=== PATIENT | female | born 1975 | race Caucasian/White ===

== ENCOUNTER 2017-07-27 10:08 | Day surgery (SDC) | payer BC ==
--- NOTE | 2017-07-27 08:08 | HP ---
DATE OF SURGERY: 07/27/2017 HISTORY OF PRESENT ILLNESS: The patient is a 41 year-old with pain in the mid abdomen, hard knot for years and now increased aches and pains for the past two weeks. She had prior appendectomy and laparoscopic endometriosis surgery in the past. She had some hernia surgery in the past. PAST MEDICAL HISTORY: She denies any chronic illnesses. PAST SURGICAL HISTORY: Laparoscopic endometriosis surgery in the past. Hernia surgery in the past. She had hand surgery and knee surgery and appendectomy in the past. MEDICATIONS: control pills, Prilosec, multivitamins according to the patient. ALLERGIES: NKDA. FAMILY HISTORY: Cancer, hypertension, dementia. SOCIAL HISTORY: No smoking or alcohol abuse. REVIEW OF SYSTEMS: Twelve systems reviewed per admission assessment. No chest pain or palpitations other systems negative or noncontributory as above and per preadmission questionnaire. PHYSICAL EXAMINATION: GENERAL: No acute distress. HEENT: Sclerae nonicteric. NECK: No JVD. CHEST: Equal excursion, nonlabored breathing. CVS: Regular rate and rhythm. ABDOMEN: Soft. She has a bulge in the mid upper abdomen likely some incarcerated preperitoneal fat or omentum. Otherwise no peritoneal signs. EXTREMITIES: No edema. NEURO: Alert, oriented, moving extremities symmetrically. No gross motor deficits noted. IMPRESSION: Incarcerated ventral hernia likely with some incarcerated preperitoneal fat or omentum at the old port from prior surgery, incarcerated hernia benefit from repair. Risks and benefits explained in detail including but not limited to bleeding or infection, risk of hematoma or seroma formation, risk of ingrown hair, suture reaction, risk if the mesh became infected likely would need to be removed, general risk of anesthesia, deep venous thrombosis, pulmonary embolism, pneumonia, risk of aches, pains, burning or numbness possible long-term or chronic in nature. She understands the overall risk of hernia recurrence. She understands small risk of scar formation, adhesions or bowel obstruction or ileus afterwards as well as remote risk of mesh fracture or failure possibly creating issues at the viscera or other structures possibly requiring other procedure, ongoing morbidity. She understands all the above as well as general risk of aches, pains, possibly chronic in nature. She understands all the above but not limited to, will proceed with repair of incarcerated ventral hernia with mesh as an outpatient.
[~2017-07-27 10:08] MED LIST: Lactated Ringers 1,000 ML IV ONE; Sensorcaine 0.25% 10 ML ONE
[2017-07-27] MEDS ORDERED: SUBLIMAZE 250 MCG/5 ML IJ ONE (10:09)
[2017-07-27] MEDS ORDERED: DIPRIVAN 200 MG/20 ML IV ONE (10:09)
[2017-07-27] MEDS ORDERED: TORAdol 30 mg Injection IJ ONE (10:09)
[2017-07-27] MEDS ORDERED: Zofran 4 MG/2 ML VIAL IV ONE (10:09)
[2017-07-27] MEDS ORDERED: Versed 2 MG/2 ML Injection IV ONE (10:09)
[2017-07-27] MEDS ORDERED: BRIDION 200MG/2ML IV ONE (10:09)
[2017-07-27] MEDS ORDERED: Zemuron 100 MG/10 ML IJ ONE (10:09)
[2017-07-27] MEDS ORDERED: Lactated Ringers 1,000 ML IV ONE (11:12)
[2017-07-27] MEDS ORDERED: CEFAZOLIN 2 GM-D5W BAG** 2 GM/50 ML ML IV ONE (11:13)
[2017-07-27] MEDS ORDERED: Lactated Ringers 1,000 ML IV SCH (11:30)
[2017-07-27] MEDS ORDERED: CEFAZOLIN 2 GM-D5W BAG** 2 GM/50 ML ML IV SCH (11:30)
[2017-07-27] MEDS ORDERED: SUBLIMAZE 100 MCG/2 ML ONE (13:56)
[2017-07-27 16:38] VITALS: O2SAT 95
[2017-07-27 16:46] VITALS: BP 136/90; PULSE 65
--- NOTE | 2017-07-28 09:52 | OP ---
SURGERY DATE/TIME: 07/27/2017 1245 PREOPERATIVE DIAGNOSIS: Enlarging symptomatic epigastric ventral hernia with smaller port incisional hernia cephalad to larger epigastric ventral hernia. POSTOPERATIVE DIAGNOSIS: Enlarging symptomatic epigastric ventral hernia with smaller port incisional hernia cephalad to larger epigastric ventral hernia. PROCEDURE: Repair of incarcerated ventral hernia with mesh. SURGEON: Dr. Alex Dean. ANESTHESIA: General. ESTIMATED BLOOD LOSS: Minimal. INDICATIONS: As noted above. Risks and benefits explained in detail and not limited to and consent was obtained. DESCRIPTION OF PROCEDURE AND FINDINGS: The site is confirmed with the patient in the preoperative holding area. The patient is taken to the operating room. General anesthesia induced. Abdomen prepped and draped in usual sterile fashion. After official time out and no disagreement with planned procedure, a transverse incision overlying large portion of the hernia. Dissection carried down. The hernia appeared to be much larger than expected. In the lower epigastrium there was a separate port incision more inferior. Incisional hernia with incarcerated preperitoneal fat and omentum this took quite some time but connecting the two complex hernias freeing them from the surrounding tissue dissecting down along the fascia. After reducing the fascial bridge they were finally reduced back down in the abdomen. The posterior aspect of fascia cleared circumferentially around. Given the moderate sized defect felt that 6.[address] was the most appropriate size mesh to use. It was carefully wet and inserted. Strap pulled upward insuring it was flat circumferentially around. It was secured a centimeter apart around the edges with interrupted 0 Prolene with healthy bites of fascia in tension-free manner. This took some time but slowly and carefully accomplished. Once this was accomplished the attenuated tissue was then closed over the top of the mesh with interrupted #1 PDS. 0.25% Marcaine local injected along the fascia and skin area. Copious amount of irrigation irrigating until clear. The tissue was cut back down to the fascia making sure inferior area at the umbilical area was kept inverted in a tension-free manner. Good hemostasis noted. Deep superficial subcu closed with 3-0 Vicryl, skin closed with 4-0 Vicryl. Steri-Strips and sterile dressing applied. 0.25% Marcaine local had been injected along the skin incision and fascial defect. The patient tolerated the procedure well. There were no immediate complications. Steri-Strips and sterile dressing and abdominal binder placed. The patient transferred to the recovery room in stable condition. Findings discussed with the family out in the waiting area.
== END 2017-07-27 16:20 | disposition home or self-care (01) ==
LOC: SDC 10:08
PROVIDERS: ATTEND Surgery
PROC: 0WUF0JZ Supplement Abdominal Wall with Synthetic Substitute, Open Approach (ICD-10-PCS; principal; 2017-07-27)
DX: K43.0 Incisional hernia with obstruction, without gangrene (principal)
CPT/HCPCS: 00752; 84703; J0690; J1885; J2250; J2405; J2704; J3010; L0625

== ENCOUNTER 2023-05-08 05:03 | Day surgery (SDC) | payer BC ==
[2023-05-08] MEDS ORDERED: EXPAREL 133 MG/10 ML VIAL IJ ONE (05:04)
[2023-05-08] MEDS ORDERED: Lactated Ringers 1,000 ML IV SCH (05:30)
[2023-05-08] MEDS ORDERED: CEFAZOLIN 2 GM-D5W BAG** 2 GM/50 ML ML IV SCH (05:30)
[2023-05-08 05:31] LABS: HCG URINE TEST NEGATIVE (NEGATIVE)
[2023-05-08 05:40] VITALS: RESP 16
[2023-05-08] MEDS ORDERED: Epinephrine Preservative Free 1 MG/ML ONE ×2 (05:44→06:10)
[2023-05-08] MEDS ORDERED: VANCOCIN INJECTION IV ONE (05:44)
[2023-05-08 05:54] LABS: BASOPHIL % 0.7 % (0.0-0.4); Basophil (Absolute #) 0.04 x10^3/uL (0-0.4); Eosinophil % 2.6 % (0.00-5.0); Eosinophil (Absolute #) 0.14 x10^3/uL (0-0.5); Hematocrit 40.6 % (35-47); Hemoglobin 13.4 g/dL (12.0-16.0); IMMATURE GRAN # 0.01 x10^3u/L (0.00-0.03); IMMATURE GRAN % 0.2 % (0.00-0.4); Lymphocyte (Absolute #) 1.42 x10^3/uL (1.0-4.6); Lymphocytes % 26.2 % (24.0-44.0); Mean Cell Volume 84.1 fL (78-100); Mean Corpuscular Hemoglobin 27.7 pg (26-32); Mean Platelet Volume 9.1 fL (7.5-11.0); Monocyte (Absolute #) 0.51 x10^3/uL (0.0-1.3); Monocytes % 9.4 % (0.0-12.0); Neutrophil % 60.9 % (36.0-66.0); Platelet Count 221 x10^3/uL (150-450); Red Blood Count 4.83 x10^6/uL (4.1-5.4); Red Cell Distribution Width 13.1 % (11.5-14.0); White Blood Count 5.4 x10^3/uL (4.0-10.5)
[2023-05-08 06:07] LABS: ALBUMIN 3.9 g/dL (3.5-5.0); ANION GAP 13.8 MEQ/L (5-15); BILIRUBIN,TOTAL 0.8 mg/dL (0.2-1.3); Calcium 8.7 mg/dL (8.4-10.2); Creatinine 1 0.79 mg/dL (0.52-1.04); EST GLOMERULAR FILTRATION RATE 92.2 ML/MIN; Potassium 3.2 mmol/L (3.5-5.1); Total Protein 6.9 g/dL (6.3-8.2)
[2023-05-08] MEDS ORDERED: DIPRIVAN 200 MG/20 ML IV ONE (06:08)
[2023-05-08] MEDS ORDERED: Decadron 4 MG INJ ONE (06:09)
[2023-05-08] MEDS ORDERED: DEXMEDETOMIDINE 80 MCG/20ML-NS IV ONE (06:09)
[2023-05-08] MEDS ORDERED: Zemuron 100 MG/10 ML ONE (06:09)
[2023-05-08] MEDS ORDERED: Xylocaine-Mpf 2% 5 Ml Vial ONE (06:09)
[2023-05-08] MEDS ORDERED: SUBLIMAZE 100 MCG/2 ML ONE ×3 (06:09→09:07)
[2023-05-08] MEDS ORDERED: Zofran 4 MG/2 ML VIAL ONE (06:09)
[2023-05-08] MEDS ORDERED: Versed 2 MG/2 ML Injection ONE (06:09)
[2023-05-08] MEDS ORDERED: OFIRMEV 100 ML IV ONE (06:17)
[2023-05-08] MEDS ORDERED: Pre-Attached Lta Kit TP ONE (06:17)
[2023-05-08] MEDS ORDERED: Marcaine Mpf 0.5% Vial 30 Ml ONE (06:17)
[2023-05-08] MEDS ORDERED: Ephedrine Sulfate 50 MG/ML ONE (07:23)
[2023-05-08] MEDS ORDERED: Lactated Ringers 0 ML IV ONE (08:23)
[2023-05-08] MEDS ORDERED: BRIDION 200MG/2ML IV ONE (08:30)
[2023-05-08] MEDS ORDERED: ROBINUL ONE (08:36)
[2023-05-08] MEDS ORDERED: TORAdol 30 mg Injection ONE (08:46)
--- NOTE | 2023-05-08 09:26 | XRAY ---
Indication: Right ankle arthroplasty. Syndesmotic reduction. Intraoperative fluoroscopy provided for 2 minute 43 seconds. 13 digital spot images submitted for interpretation ultimately demonstrates 2 tunnel radiolucencies traversing distal tibia/fibula with medial/lateral orthopedic buttons. Correlate with intraoperative findings/report.
[2023-05-08 09:40] VITALS: TEMP 98.6
[2023-05-08] MEDS ORDERED: NORCO 7.5/325 MG TAB PO PRN (09:41)
--- NOTE | 2023-05-08 09:58 | XRAY ---
Two minutes and 43 seconds of fluoroscopy was used in surgery for a Right ankle arthroplasty. Syndesmotic reduction.
[2023-05-08 10:11] VITALS: BP 108/64; PULSE 81; O2SAT 96
--- NOTE | 2023-05-11 12:51 | OP ---
SURGERY DATE/TIME: 05/08/2023 0710 PREOPERATIVE DIAGNOSES: 1) Right ankle synovitis. 2) Right ankle pain. 3) Syndesmosis, acute rupture. 4) Bimalleolar fracture equivalent. POSTOPERATIVE DIAGNOSES: 1) Right ankle synovitis. 2) Right ankle pain. 3) Syndesmosis, acute rupture. 4) Bimalleolar fracture equivalent. PROCEDURES: 1) Ankle arthroscopy with complete synovectomy right ankle. 2) Syndesmotic stabilization SURGEON: Manuel Fernández DPM. PLASTIC MOULD MAKER: None. ANESTHESIA: General with a preoperative regional block. See anesthesia notes for details. HEMOSTASIS: Thigh tourniquet set to 350 mm of Mercury for 35 total tourniquet minutes. ESTIMATED BLOOD LOSS: Approximately 10 cc. MATERIALS: Kg two hole one-third tubular plate with two Titanium ZipTight, 4-0 Monocryl, 3-0 Nylon. INJECTABLES: See anesthesia report for details. INDICATION FOR SURGERY: Ginger is a very pleasant 47-year-old female who is known to my service for a fibular fracture that was isolated approximately five weeks ago. The patient was progressing without complication this was deemed to be a nonsurgical issue based on weightbearing x-rays demonstrating an isolated fibular fracture at the level of the syndesmosis. However, no medial clear space widening and no pain to the medial aspect of the ankle. From that standpoint, the patient was in a CAM boot and ambulating. The patient indicates that she got up later in the evening and felt a pop with immediate pain on the outside of her ankle. She did not roll her ankle in any respect. Her foot was slightly dorsiflexed when this occurred. The patient presented to my office thinking that she had refractured her ankle. X-rays were taken demonstrating a healed ankle fracture. However, stress views were obtained demonstrating widening of the medial clear space as well as widening of the tibiotalar joint. At this time options were discussed with the patient in regards to surgical versus nonsurgical options. Given that the syndesmosis was unstable the decision was made to proceed with surgical intervention. The patient has been having some degree of ankle pain for a long time prior to surgical intervention given that she had a deltoid rupture. The decision was made to proceed with an ankle arthroscopy as well as stabilization of the syndesmosis. All risks, complications and benefits of the surgical intervention including but not limited to infection, hematoma, seroma, possibility of delayed wound healing, possibility of failure of surgical intervention and possible need for further surgery intervention at a later date have all been discussed. No guarantees were provided as to the outcome. Plenty of time was allowed for the patient to ask questions which were answered to her apparent satisfaction. At this time we decided to proceed. DESCRIPTION OF PROCEDURE AND FINDINGS: The patient was brought into the OR and placed on the OR table in the supine position. At this time general anesthesia was administered until the patient was sedated. A well-padded thigh tourniquet was applied to the patient's right thigh and set to 300 mm of Mercury. The right lower extremity was prepped and draped in the typical sterile fashion and lowered onto the surgical field. At this time under C-arm fluoroscopy with the patient sedated, multiple stress views were taken. At this time dorsiflexion with external rotation test was performed demonstrating clear gapping at the syndesmosis. From that standpoint, an anterior drawer was also performed deeming to be relatively adequate. At this time attention was directed to the anterior medial and anterior lateral aspects of the ankle where portals were identified by landmarking the palpable dell at the dorsiflexed limit of the ankle as well as medial and lateral malleolus. Lines were drawn and just medial to the tibialis anterior tendon, an anterior and medial portal was established for insufflation with lactated Ringer's. Approximately 20 cc of fluid were utilized to insufflate the joint. At this time the foot dorsiflexed and the anterolateral capsule. From that standpoint an 11 blade was utilized to make a linear incision through the skin. Blunt dissection was carried down utilizing a mini-hemostat until some of the insufflation fluid leaked out. An obturator with trocar was introduced and the obturator was taken out introducing the 30 degree 4.0 mm camera. At this time inspection of the joint took place where significant amount of crabmeat synovitis was identified within the lateral aspect of the ankle joint as well as some scar tissue that was identified between the fibula and the tibia. At this time extensive synovectomy took place utilizing the 2.7 mm shaver and stitching portal sites to make sure thorough job was performed. After taking pictures and removing significant amount of the synovitis, the Esmarch was utilized to exsanguinate the leg and the tourniquet was inflated to 300 mm of Mercury. At this time a small linear incision approximately 3 cm in length was made at the central posterior aspect of the fibula. Dissection was carried to the posterior aspect of the fibula and the syndesmosis was once again stressed and deemed to be inadequate. At this time the two-hole one-third tubular plate was introduced at the posterior aspect to guide perpendicular to the surface as well as in a 15 to 30 degree orientation to prevent malreduction of the syndesmosis. The tenaculum was placed and the syndesmosis was reduced. The two-hole plate was placed with two Titanium ZipTight through the ankle stabilizing the ankle joint in adequate position which is seen on lateral and mortise view. From this standpoint, the stress views were taken once again demonstrating no rotational instability with external rotation as well as adequate placement within the tibiotalar joint on the lateral. At this time surgical sites were cleansed with copious amounts of sterile saline. 4-0 Monocryl was utilized to coapt the subcutaneous skin edges and 3-0 Nylon was utilized in a horizontal mattress-type fashion to kiersten the skin edges. A dressing consisting of Betadine, Adaptic, 4x4, Kerlix and a well-padded posterior splint was applied to the patient's right ankle with the foot orthogonal relative to longitudinal axis of the leg. The patient then was reversed from anesthesia and returned to the postoperative anesthesia care unit with vital signs stable and vascular status intact. The patient handled the anesthesia as well as the procedure without significant complication. Postoperative orders as indicated in the patient's discharge chart.
== END 2023-05-08 10:23 | disposition home or self-care (01) ==
LOC: SDC 05:03
PROVIDERS: ATTEND Podiatrist Foot & Ankle Surgery
DX: M65.871 Other synovitis and tenosynovitis, right ankle and foot (principal); M25.571 Pain in right ankle and joints of right foot; S93.431A Sprain of tibiofibular ligament of right ankle, initial encounter; S82.841A Displaced bimalleolar fracture of right lower leg, initial encounter for closed fracture
CPT/HCPCS: 27829; 29898; 36415; 73610; 76000; 76937; 80053; 81025; 85025; C1713; J0171; J0690; J1100; J1885; J2250; J2405; J2704; J3010; J3370; A9270-GY